=== PATIENT | female | born 1965 | race Caucasian/White ===

== ENCOUNTER 2016-10-04 14:57 | Emergency (ER) | payer BC ==
[2016-10-04 15:37] VITALS: BP 122/63
--- NOTE | 2016-10-04 15:50 | UC ---
Throat Pain/Nasal Maicol HPI - HPI Summary HPI Summary: pt c/o gradual onset of sore throat, nasal congestion, cough, generalized malaise X 2 days. Pt is a driving school instructor. Pt did not get flu vaccine this year. - History of Current Complaint Chief Complaint: UCGeneralIllness Stated Complaint: SORE THROAT Time Seen by Provider: 10/04/16 15:30 Hx Obtained From: Patient Hx Last Menstrual Period: uterine ablation 2003 ?: No Onset/Duration: Gradual Onset, Lasting Days Severity: Mild Cough: Nonproductive Associated Signs & Symptoms: Positive: Other - nasal congestion, sore throat. - Allergies/Home Medications Allergies/Adverse Reactions: Allergies Allergy/AdvReac Type Severity Reaction Status Date / Time No Known Allergies Allergy Verified 10/04/16 15:37 Home Medications: Home Medications Acetaminophen [Extra Strength Acetaminop] 1,000 mg PO ONCE PRN 10/04/16 [ History Confirmed 10/04/16] Ibuprofen [Advil] 400 mg PO ONCE PRN 10/04/16 [History Confirmed 10/04/16] PMH/Surg Hx/FS Hx/Imm Hx Previously Healthy: Yes Endocrine History Of: Reports: Thyroid Disease Denies: Diabetes Cardiovascular History Of: Denies: Cardiac Disorders, Hypertension Respiratory History Of: Denies: COPD, Asthma GI/ History Of: Denies: Ulcer - Surgical History Surgical History: Yes Surgery Procedure, Year, and Place: Cholecystectomy, 1999. Uterine Ablation, 2003 - Family History Known Family History: Positive: Cardiac Disease - Social History Lives: With Family Alcohol Use: Rare Substance Use Type: None Smoking Status (MU): Never Smoked Tobacco When Did the Patient Quit Smoking/Using Tobacco: 25 years ago - Immunization History Most Recent Influenza Vaccination: none Review of Systems Constitutional: Chills, Fatigue Skin: Negative Eyes: Negative ENT: Sore Throat Respiratory: Cough Cardiovascular: Negative Gastrointestinal: Negative Genitourinary: Negative Motor: Negative Neurovascular: Negative Musculoskeletal: Myalgia Neurological: Negative Psychological: Negative All Other Systems Reviewed And Are Negative: Yes Physical Exam Triage Information Reviewed: Yes Appearance: Ill-Appearing Vital Signs: Initial Vital Signs Temp 99 F 10/04/16 15:32 Pulse 66 10/04/16 15:32 Resp 16 10/04/16 15:32 BP 122/63 10/04/16 15:32 Pulse Ox 100 10/04/16 15:32 Eye Exam: Normal ENT Exam: Other ENT: Positive: Pharyngeal erythema, Nasal congestion Neck exam: Normal Respiratory Exam: Normal Cardiovascular Exam: Normal Musculoskeletal Exam: Normal Neurological Exam: Normal Psychological Exam: Normal Skin Exam: Normal Throat Pain/Nasal Course/Dx - Differential Dx/Diagnosis Differential Diagnosis/HQI/PQRI: Influenza, Pharyngitis, URI Provider Diagnoses: Influenza Discharge - Discharge Plan Condition: Stable Disposition: HOME Patient Education Materials: Influenza (ED) Referrals: Dolores Bonilla MD [Primary Care Provider] - Additional Instructions: Please follow up with your PCP or return to clinic.
== END 2016-10-04 16:44 | disposition home or self-care (01) ==
LOC: UCCORT 14:57
DX: J11.1 Influenza due to unidentified influenza virus with other respiratory manifestations (principal)
CPT/HCPCS: 87502; 87651; 99211; G0463

== ENCOUNTER 2017-08-03 11:37 | Emergency (ER) | payer BC | END 2017-08-03 13:38 | disposition left against medical advice (07) | LOC: UCCORT 11:37 | DX: J02.9 Acute pharyngitis, unspecified (principal); Z53.21 Procedure and treatment not carried out due to patient leaving prior to being seen by health care provider ==

== ENCOUNTER 2018-03-01 12:52 | Emergency (ER) | payer BC ==
[2018-03-01 13:26] VITALS: BP 129/85
--- NOTE | 2018-03-01 14:24 | RAD ---
Indication: Foot pain 3 views of the left foot are reviewed. There are degenerative changes with joint space narrowing at the distal interphalangeal joints of the third digit. Osteophyte formation is noted. There may be some mild degenerative changes of the distal interphalangeal joint of the fourth digit. No fracture is identified. IMPRESSION: Degenerative joint disease at the distal interphalangeal joint third digit. No fracture is noted.
--- NOTE | 2018-03-01 14:43 | UC ---
Lower Extremity/Ankle HPI - HPI Summary HPI Summary: The patient is a 52-year-old female with an approximately 2 week history of progressively worsening left middle toe DIP joint pain and tenderness. She denies any recent trauma. Last fall she stubbed that toe. In June she followed up with a parasitology teacher. There was no fracture. - History of Current Complaint Chief Complaint: UCLowerExtremity Stated Complaint: L FOOT COMP Time Seen by Provider: 03/01/18 14:02 Hx Obtained From: Patient Hx Last Menstrual Period: uterine ablation 2003 Onset/Duration: Gradual Onset, Lasting Weeks Severity Initially: Mild Severity Currently: Mild Pain Intensity: 4 Pain Scale Used: 0-10 Numeric Aggravating Factor(s): Standing, Ambulation Alleviating Factor(s): Rest, OTC Meds Able to Bear Weight: Yes - Allergies/Home Medications Allergies/Adverse Reactions: Allergies Allergy/AdvReac Type Severity Reaction Status Date / Time No Known Allergies Allergy Verified 03/01/18 13:25 PMH/Surg Hx/FS Hx/Imm Hx Previously Healthy: Yes Endocrine History: Thyroid Disease GI/ History: Gastroesophageal Reflux - Surgical History Surgical History: Yes Surgery Procedure, Year, and Place: Cholecystectomy, 1999. Uterine Ablation, 2003 - Family History Known Family History: Positive: Cardiac Disease, Hypertension - Social History Alcohol Use: Occasionally Substance Use Type: None Smoking Status (MU): Never Smoked Tobacco When Did the Patient Quit Smoking/Using Tobacco: 25 years ago - Immunization History Most Recent Influenza Vaccination: none Review of Systems Constitutional: Negative Skin: Negative Eyes: Negative ENT: Negative Respiratory: Negative Cardiovascular: Negative Gastrointestinal: Negative Genitourinary: Negative Motor: Negative Neurovascular: Negative Musculoskeletal: Arthralgia Neurological: Negative Psychological: Negative Is Patient Immunocompromised?: No All Other Systems Reviewed And Are Negative: Yes Physical Exam Triage Information Reviewed: Yes Appearance: Well-Appearing, No Pain Distress, Well-Nourished Vital Signs: Initial Vital Signs Temp 97.9 F 03/01/18 13:19 Pulse 69 03/01/18 13:19 Resp 17 03/01/18 13:19 BP 129/85 03/01/18 13:19 Pulse Ox 98 03/01/18 13:19 Eyes: Positive: Conjunctiva Clear ENT: Positive: Hearing grossly normal. Negative: Nasal congestion, Nasal drainage, Trismus, Muffled voice, Hoarse voice Neck: Positive: Supple, Nontender, No Lymphadenopathy Respiratory: Positive: Lungs clear, Normal breath sounds, No respiratory distress Cardiovascular: Positive: RRR, No Murmur, Pulses Normal Musculoskeletal: Positive: ROM Limited @ - left middle toe DIP/tender/slight swelling Neurological Exam: Normal Neurological: Positive: Alert Psychological Exam: Normal Skin Exam: Normal Lower Extremity Course/Dx - Differential Dx/Diagnosis Provider Diagnoses: left third toe DJD Discharge - Sign-Out/Discharge Documenting (check all that apply): Patient Departure - Discharge Plan Condition: Stable Disposition: HOME Patient Education Materials: Arthritis (ED) Referrals: Dolores Bonilla MD [Primary Care Provider] - If Needed Additional Instructions: georgina tape for comfort post op shoe aleve 1-2 twice daily with food for pain see you parasitology teacher if not improved in 1 week - Billing Disposition and Condition Condition: STABLE Disposition: Home
== END 2018-03-01 14:54 | disposition home or self-care (01) ==
LOC: UCCORT 12:52
DX: M19.072 Primary osteoarthritis, left ankle and foot (principal)
CPT/HCPCS: 99213; G0463

== ENCOUNTER 2018-11-27 11:11 | Emergency (ER) | payer BC ==
--- NOTE | 2018-11-27 13:47 | UC ---
Throat Pain/Nasal Maicol HPI - HPI Summary HPI Summary: Sore throat for 2 days. - History of Current Complaint Stated Complaint: SORE THROAT Time Seen by Provider: 11/27/18 13:46 Hx Obtained From: Patient Hx Last Menstrual Period: uterine ablation 2003 ?: No Onset/Duration: Gradual Onset Severity: Mild Cough: None Associated Signs & Symptoms: Positive: Negative - Epiglottits Risk Factors Epiglottis Risk Factors: Negative - Allergies/Home Medications Allergies/Adverse Reactions: Allergies Allergy/AdvReac Type Severity Reaction Status Date / Time No Known Allergies Allergy Verified 03/01/18 13:25 Home Medications: Home Medications Atorvastatin* [Lipitor 10 MG*] 10 mg PO DAILY 11/27/18 [History Confirmed ] PMH/Surg Hx/FS Hx/Imm Hx Previously Healthy: Yes - Surgical History Surgical History: Yes Surgery Procedure, Year, and Place: Cholecystectomy, 1999. Uterine Ablation, 2003 - Family History Known Family History: Positive: Cardiac Disease, Hypertension, Diabetes - Social History Occupation: Employed Part-time Lives: With Family Alcohol Use: Occasionally Substance Use Type: None Smoking Status (MU): Never Smoked Tobacco When Did the Patient Quit Smoking/Using Tobacco: 25 years ago - Immunization History Most Recent Influenza Vaccination: none Review of Systems All Other Systems Reviewed And Are Negative: Yes ENT: Positive: Sore Throat Is Patient Immunocompromised?: No Physical Exam Triage Information Reviewed: Yes Appearance: Well-Appearing, No Pain Distress, Well-Nourished Vital Signs Reviewed: Yes Eye Exam: Normal ENT: Positive: Pharyngeal erythema, TMs normal, Uvula midline. Negative: Tonsillar swelling, Tonsillar exudate, Trismus, Hoarse voice Neck exam: Normal Neck: Positive: Supple, Nontender, No Lymphadenopathy Respiratory Exam: Normal Respiratory: Positive: Lungs clear, Normal breath sounds, No respiratory distress, No accessory muscle use Cardiovascular: Positive: RRR, No Murmur, Pulses Normal, Brisk Capillary Refill Abdomen Description: Positive: Nontender, No Organomegaly, Soft Bowel Sounds: Positive: Present Musculoskeletal Exam: Normal Neurological Exam: Normal Psychological Exam: Normal Skin Exam: Normal Throat Pain/Nasal Course/Dx - Course Course Of Treatment: Pt comfortable here. Rapid strep test was negative. - Differential Dx/Diagnosis Provider Diagnosis: Pharyngitis Discharge - Sign-Out/Discharge Documenting (check all that apply): Patient Departure All imaging exams completed and their final reports reviewed: No Studies - Discharge Plan Condition: Fair Disposition: HOME Patient Education Materials: Pharyngitis (ED) Referrals: Dolores Bonilla MD [Primary Care Provider] - Additional Instructions: Increase fluids, warm, salt water gargles, throat lozenges, Recheck in 3-4 days if no improvement. - Billing Disposition and Condition Condition: FAIR Disposition: Home
[2018-11-27 13:51] VITALS: BP 136/76
== END 2018-11-27 14:12 | disposition home or self-care (01) ==
LOC: UCCORT 11:11
DX: J02.9 Acute pharyngitis, unspecified (principal); Z87.891 Personal history of nicotine dependence
CPT/HCPCS: 87651; 99211; G0463